=== PATIENT | female | born 1945 | race Two or more races ===

== ENCOUNTER 2025-02-01 22:39 | Inpatient (IN) | payer OTHER, MEDICAID ==
[~2025-02-01] VITALS: Ht 152.4 cm; Wt 63.0 kg
[~2025-02-01 22:39] MED LIST: BENA10TA84; ENAL5TAB22; OMEP20TA; SIMV40TA42
[2025-02-02 02:55] LABS: Hematocrit 37.8 % (36.0-46.0); Hemoglobin 12.9 g/dL (12.2-16.2); Mean Corpuscular Hemoglobin 29.0 pg (28.0-32.0); Mean Corpuscular Volume 85.4 fL (80.0-100.0); Nucleated Red Blood Cells % 0.1 %
[2025-02-02 03:13] LABS: Alanine Aminotransferase 12 U/L (7-40); Albumin 4.4 g/dL (3.2-4.8); Alkaline Phosphatase 78 U/L (46-116); Anion Gap 10 (5-15); BUN/Creatinine Ratio 22.9 (10.0-20.0); Blood Urea Nitrogen 19 mg/dL (9-23); Calcium 9.3 mg/dL (8.7-10.4); Carbon Dioxide 26 mmol/L (20-31); Chloride 103 mmol/L (98-107); Creatine Kinase IFCC 80 U/L (34-145); Glucose 105 mg/dL (74-106); Potassium 4.2 mmol/L (3.5-5.1); Sodium 139 mmol/L (136-145); Total Protein 7.4 g/dL (5.7-8.2)
[2025-02-02 03:14] LABS: Bilirubin, Total 0.4 mg/dL (0.2-1.0)
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
[2025-02-02] MEDS ORDERED: ACETAMINOPHEN 325 MG TAB PO PRN (04:00)
[2025-02-02] MEDS ORDERED: NITROGLYCERIN 0.4 MG SL TAB SL PRN (04:00)
[2025-02-02] MEDS ORDERED: ONDANSETRON HCL 4 MG/2 ML VIAL IV PRN (04:00)
[2025-02-02] MEDS ORDERED: MORPHINE SULFATE INJ 2 MG/ml SYRG IV PRN ×2 (04:00)
[2025-02-02 04:39] LABS: Magnesium 2.4 mg/dL (1.6-2.6)
[2025-02-02 04:52] LABS: INR 0.97 (0.9-1.15); Partial Thromboplastin Time 30.8 SEC (24.5-34.5); Prothrombin Time 10.3 sec (9.3-11.8)
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
[2025-02-02 05:20] LABS: Triglycerides 88.0 mg/dL (< 150)
[2025-02-02 05:22] LABS: Cholesterol 132.0 mg/dL (< 200); HDL Cholesterol 44.0 mg/dL (40-59)
[2025-02-02 06:03] VITALS: PULSE 64; RESP 17; O2SAT 95
[2025-02-02] MEDS: IOHEXOL 350 MG/ML 100ML IJ ONE (06:29)
[2025-02-02 06:53] LABS: Hematocrit 35.6 % (36.0-46.0); Hemoglobin 12.0 g/dL (12.2-16.2); Mean Corpuscular Hemoglobin 29.1 pg (28.0-32.0); Mean Corpuscular Volume 86.5 fL (80.0-100.0); Nucleated Red Blood Cells % 0.0 %
[2025-02-02 07:08] LABS: Anion Gap 6 (5-15); Carbon Dioxide 26 mmol/L (20-31); Chloride 102 mmol/L (98-107); Potassium 4.7 mmol/L (3.5-5.1)
[2025-02-02 07:09] LABS: Calcium 8.7 mg/dL (8.7-10.4)
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
[2025-02-02 07:14] LABS: BUN/Creatinine Ratio 21.9 (10.0-20.0); Blood Urea Nitrogen 16 mg/dL (9-23)
[2025-02-02 07:17] LABS: Glucose 117 mg/dL (74-106); Sodium 134 mmol/L (136-145)
[2025-02-02] MEDS: ENOXAPARIN SOD 40 MG/0.4 ML SYRINGE SC SCH (10:17)
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
[2025-02-02 13:25] VITALS: BP 102/75; PULSE 64; RESP 18; TEMP 98.6; O2SAT 96
--- NOTE | 2025-02-07 18:18 | DVHSR ---
APPROVED REPORT EXAM: Two-dimensional and M-mode echocardiogram with Doppler and color Doppler. Blood Pressure: 140/79 mmHg INDICATION NSTEMI, chest trauma RISK FACTORS Height: 60, Weight: 138 DIMENSIONS LVDd4.0 (3.8-5.7cm)LA (2D)3.7 (1.9-4.0cm)Aortic Root3.7 (2.0-3.7cm) LVDs2.8 (2.5-4.0cm)LA (MM) (1.9-4.0cm)Aortic Cusp Exc1.9 (1.5-2.0cm) EF (%) 60.0 (55-70%)Rt. Atrium3.7 (1.9-4.0cm)Asc. Aorta cm IVSd1.0 (0.7-1.1cm)RV (D) (1.8-2.4cm) PWd1.1 (0.7-1.1cm) Mitral Valve MitralMitral Stenosis E wave0.44m/sMV Mean GR.2mmHg A wave1.27m/sMV Peak GR.7mmHg E/A ratio0.32D MVAcm2 DECEL [id number] 1/2 [place] Aortic Valve Aortic ValveAortic Stenosis V10.82m/Louise Mean GR.3mmHg V21.18m/Louise Peak GR.6mmHg LVOT Diameter2.2 (1.8-2.4cm)Doppler AVA2.64cm2 Pulmonic Valve V20.72m/s Tricuspid Valve TR Velocity2.37m/s [id number] Conclusion Technically good study. Sinus rhythm. Concentric LVH with left atrial enlargement. Mild aortic root dilatation mild dilation of the sinuse s of Valsalva. The posterior mitral leaflet has moderate calcification and a nodularity at the convergence of the po sterior mitral leaflet tip with the papillary muscle. The anterior mitral leaflet is normal. The ao rtic leaflets are normal. The tricuspid and pulmonic is normal. Left ventricular function is preserved at 55-60% with normal RV function. There is mild tricuspid regurgitation. No pericardial effusion masses or vegetations.
--- NOTE | 2025-02-08 13:53 | ECG ---
[facility] Test Date: 2025-02-01 Test Time: 22:42:24 Pat Name: UNIQUE RUTH Department: [facility] ED Patient ID: [facility]-[id number] Room: [address] [place] [address] Gender: F Nutrition Services Manager: JOSE : 1945 Requested By: EMERGENCY EMERGENCY Order Number: [id number] Reading MD: Jeffery Carter Measurements Intervals Banner Rate: 90 P: 50 NH: 159 QRS: 45 QRSD: 140 T: 27 QT: 447 QTc: 547 Interpretive Statements Sinus rhythm Left bundle branch block Baseline wander in lead(s) I,III,aVL,aVF Electronically Signed On 02-11-2025 18:32:37 PDT by Jeffery Carter Please click the below link to view image of tracing.
== END 2025-02-02 16:35 | disposition home or self-care (01) | DRG 604 ==
LOC: ER 22:39 → EDBD 22:39 → OVERFLOW 02-02 03:52
PROVIDERS: ADMIT Internal Medicine Geriatric Medicine; ATTEND Internal Medicine Geriatric Medicine
DX: S20.211A Contusion of right front wall of thorax, initial encounter (principal); I21.A1 Myocardial infarction type 2; S26.91XA Contusion of heart, unspecified with or without hemopericardium, initial encounter; M17.0 Bilateral primary osteoarthritis of knee; I72.2 Aneurysm of renal artery; E11.9 Type 2 diabetes mellitus without complications; E78.5 Hyperlipidemia, unspecified; I10 Essential (primary) hypertension; Z79.84 Long term (current) use of oral hypoglycemic drugs; Z79.899 Other long term (current) drug therapy; V89.2XXA Person injured in unspecified motor-vehicle accident, traffic, initial encounter; Y92.410 Unspecified street and highway as the place of occurrence of the external cause; Y93.89 Activity, other specified; Y99.8 Other external cause status
CPT/HCPCS: 36415; 70450; 71045; 71275; 72125; 80048; 80053; 80061; 82306; 82550; 82607; 83036; 83605; 83735; 84100; 84443; 84484; 85025; 85610; 85730; 93005; 93306; 96372; 99291; G0378